=== PATIENT | male | born 1985 | race Caucasian/White ===

== ENCOUNTER 2019-08-15 14:58 | Observation (INO) | payer OTHER, SELFPAY ==
[2019-08-15 15:56] LABS: Bicarbonate (HCO3v) 16.6 mmol/L (22.0-28.0); CO2 Tension (PvCO2) 38.1 mmHg (40.0-50.0); Calcium, Ionized 1.08 mmol/L (See Comments:); Chloride 103 mmol/L (98-107); Hemoglobin - Calc 14.9 g/dL (14.0-18.0); Potassium 4.2 mmol/L (3.5-5.1); Sodium 130 mmol/L (138-145); T. Carbon Dioxide 17.8 mmol/L (22.0-28.0); vO2 Saturation-calc 96.5 % (60.0-85.0)
[2019-08-15 16:01] LABS: Anion Gap 13 mmol/L (10-20); BUN (Urea Nitrogen) 13 mg/dL (8.9-20.6); Calc. Creatinine Clearance 0 mL/min (70-130); Calcium 7.6 mg/dL (7.8-10.44); Carbon Dioxide 17 mmol/L (22-29); Chloride 102 mmol/L (98-107); Estimated GFR-MDRD 68; Glucose 165 mg/dL (70-105); Potassium 4.1 mmol/L (3.5-5.1); Sodium 128 mmol/L (136-145)
[2019-08-15 16:02] LABS: Magnesium 1.6 mg/dL (1.6-2.6)
[2019-08-15 16:12] LABS: Phosphorus 1.3 mg/dL (2.3-4.7)
[2019-08-15] MEDS ORDERED: PHOS-NAK 1 PKT PACK PO SCH (17:00)
[2019-08-15] MEDS ORDERED: Insulin Glargine 15 UNITS in Pre-Filled Syringe 1 EACH SC SCH (17:00)
[2019-08-15] MEDS ORDERED: Bisacodyl 10 MG SUPP PR PRN (19:10)
[2019-08-15] MEDS ORDERED: Senokot S 8.6-50 MG TAB PO PRN (19:10)
[2019-08-15] MEDS ORDERED: Dextrose 5% in Water 1,000 ML IV PRN (19:10)
[2019-08-15] MEDS ORDERED: Calcium Carbonate 500 MG ChewTAB PO PRN (19:10)
[2019-08-15] MEDS ORDERED: Guaifenesin DM 100-10/5 ML UDCUP PO PRN (19:10)
[2019-08-15] MEDS ORDERED: Dextrose 50% Abboject 50 ML SYRINGE SLOW IVP PRN (19:10)
[2019-08-15] MEDS ORDERED: HumaLOG 300 UNITS/3 ML VIAL SC PRN (19:10)
[2019-08-15] MEDS ORDERED: Ondansetron PF 4 MG/2 ML Vial IVP PRN (19:10)
[2019-08-15] MEDS ORDERED: Acetaminophen 325 MG TAB PO PRN (19:10)
[2019-08-15] MEDS: Sodium Chloride 0.9% 1,000 ML IV SCH (20:03)
[2019-08-15 20:15] VITALS: BMI 18.1
[2019-08-15] MEDS: Famotidine 20 MG TAB PO SCH (21:00)
[2019-08-15 21:17] LABS: Acetaminophen Less than 6.0 mcg/mL (10.0-30.0); Alcohol Less than 10 mg/dL (Less than 10); Salicylate Less than 8.0 mg/dL (15.0-30.0)
--- NOTE | 2019-08-15 21:29 | HP ---
REASON FOR ADMISSION: Initial admission was for DKA. HISTORY OF PRESENTING ILLNESS: The patient gives history of having loss of appetite from last 2 to 3 weeks now. He has been having intractable nausea and vomiting and has not been able to eat or drink. The first meal he had was in the ER here. He has had myalgias from last 2 weeks. 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 He does not know if he is exposed to coronavirus. The patient normally takes Lantus 21 units subcu once daily and Humalog for coverage. No abdominal pain, diarrhea, or constipation. No complaints of chest pain, palpitation, PND, or orthopnea. No cough or expectoration as such now. PAST MEDICAL AND SURGICAL HISTORY: Diabetes mellitus, type 1 for last 17 years. He has had surgery for intussusception with bowel obstruction, appendectomy, tonsillectomy. Depression and anxiety. CURRENT MEDICATIONS: 1. Zoloft 50 mg p.o. daily. 2. Humalog coverage. 3. Lantus 21 units subcu q.a.m. ALLERGIES: NO KNOWN DRUG ALLERGIES. PERSONAL HISTORY: Drinks on social occasions. Smokes one pack a day. Does not abuse drugs. FAMILY HISTORY: Mother is healthy. Father has history of diabetes, both are living. CODE STATUS: Full. Power of disability attorney is his mom. REVIEW OF SYSTEMS: CONSTITUTIONAL: Negative for weight loss or gain, ability to conduct usual activities. SKIN: Negative for rash, itching. EYES: Negative for double vision, pain. ENT/MOUTH: Negative for nose bleeding, neck stiffness, pain, tenderness. CARDIOVASCULAR: Negative for palpitations, dyspnea on exertion, orthopnea. RESPIRATORY: Negative for shortness of breath, wheezing, cough, hemoptysis, fever or night sweats. GASTROINTESTINAL: Negative for poor appetite, abdominal pain, heartburn, nausea, vomiting, constipation, or diarrhea. GENITOURINARY: Negative for urgency, frequency, dysuria, nocturia. MUSCULOSKELETAL: Negative for pain, swelling. NEUROLOGIC/PSYCHIATRIC: Negative for anxiety, depression. ALLERGY/IMMUNOLOGIC: Negative for skin rash, bleeding tendency. PHYSICAL EXAMINATION: GENERAL: The patient is a 34-year-old male, who is currently not in any acute distress. VITAL SIGNS: Blood pressure 100/66, pulse 96 per minute, respiratory rate 18 per minute, temperature 98.1 degrees Fahrenheit, and saturating 99% on room air. NECK: Supple. No elevated JVD. HEENT: Eyes; extraocular muscles are intact. Pupils reacting to light. Oral cavity, mucous membranes are dry. No exudates or congestion. CARDIOVASCULAR SYSTEM: S1 and S2 heard. Tachycardic. No murmur. RESPIRATORY SYSTEM: Air entry 1+ bilateral. No rales or rhonchi. ABDOMEN: Soft. Bowel sounds heard. No tenderness, rigidity, or guarding. EXTREMITIES: No peripheral edema or calf tenderness. VASCULAR SYSTEM: Peripheral pulses 1+ bilateral. No ischemic ulcerations or gangrene. CENTRAL NERVOUS SYSTEM: No gross focal motor deficits noted. The patient is alert, awake, and oriented well. PSYCHIATRIC SYSTEM: The patient's mood is euthymic. No hallucinations or delusions. LABORATORY DATA: White count of 14, H and H of 17 and 53, platelet count 438, MCV is 94 with 79% neutrophils, 13% lymphocytes. Venous blood gas done shows a pH of 7.14 at 1130 hours. A repeat blood gas at around 4 p.m. shows a pH of 7.24 with a bicarb of 16. Initial serum bicarb was 17. Sodium 128, BUN 13, creatinine 1.23, serum glucose was 165, phosphorus 1.3, and magnesium 1.6. UA showed no evidence of infection. Prior drug screen in May of 2019 was positive for amphetamine, methamphetamine, and benzodiazepines. Current beta hydroxybutyrate is 3.41. EKG done shows sinus tach at 103 beats per minute. CLINICAL IMPRESSION AND PLAN: The patient will be admitted to the medical floor under observation for diabetic ketoacidosis, which is rapidly resolving. He is severely dehydrated with intractable nausea and vomiting. The patient will be aggressively hydrated with normal saline at 100 mL/hour. He was on insulin 5 mg an hour drip, which has been discontinued and has received a dose of Lantus 15 units subcu in the ER. We will continue him on 15 units subcu Lantus daily and Humalog moderate coverage with nighttime coverage as well. We will obtain a urine drug screen as well. The patient has mild left ventricular hypertrophy signs on the EKG, likely due to his drug abuse. We will continue to closely monitor him on medical floor. In view of patient's symptoms of generalized body aches from last 2 weeks, we will check a COVID-19 test as well. He will have droplet and airborne precautions as well. Job ID: [id number]
[2019-08-16] MEDS: Sodium Chloride 0.9% 1,000 ML IV SCH ×2 (00:51→09:06)
[2019-08-16 01:31] LABS: Amphetamine Not Detected (NotDetected); Barbiturates Screen Not Detected (NotDetected); Benzodiazepine Screen Detected (NotDetected); Cocaine Metabolite Screen Not Detected (NotDetected); Medtox Control Line Valid? VALID (VALID); Medtox Reader # READER 4; Methadone Not Detected (NotDetected); Methamphetamine Not Detected (NotDetected); Opiate Screen Not Detected (NotDetected); Oxycodone Screen Not Detected (NotDetected); Phencyclidine (PCP) Not Detected (NotDetected); THC/Cannabinoid Screen Detected (NotDetected); Tricyclic Screen Not Detected (NotDetected)
[2019-08-16 05:32] LABS: #Basophils 0.1 thou/uL (0.0-0.2); #Eosinphils 0.2 thou/uL (0.0-0.7); #Lymphocytes 1.7 thou/uL (1.20-3.40); #Neutrophils 6.3 thou/uL (1.40-6.50); %Basophils 0.6 % (0.0-1.0); %Lymphocytes 18.1 % (21.0-51.0); %Monocytes 10.9 % (0.0-10.0); %Neutrophils 68.4 % (42.0-75.0); Hemoglobin 13.9 g/dL (14.0-18.0); Mean Corpuscular HGB CONC 33.7 g/dL (32.0-36.0); Mean Corpuscular Hemoglobin 31.1 pg (27.0-31.0); Mean Corpuscular Volume 92.3 fL (78.0-98.0); Mean Platelet Volume 8.8 fL (7.4-10.4); Platelet Count 316 thou/uL (130-400); RBC Distribution Width 12.3 % (11.5-14.5); Red Blood Cell (RBC) Count 4.47 mill/uL (4.70-6.10); White Blood Cell (WBC) Count 9.1 thou/uL (4.8-10.8)
[2019-08-16 05:55] LABS: ALT (SGPT) Less than 7 U/L (8-55); AST (SGOT) 6 U/L (5-34); Albumin 3.2 g/dL (3.5-5.0); Alkaline Phosphatase 62 U/L (40-110); Anion Gap 11 mmol/L (10-20); BUN (Urea Nitrogen) 9 mg/dL (8.9-20.6); Bilirubin, Total 0.2 mg/dL (0.2-1.2); Calc. Creatinine Clearance 91 mL/min (70-130); Calcium 7.8 mg/dL (7.8-10.44); Carbon Dioxide 22 mmol/L (22-29); Chloride 105 mmol/L (98-107); Estimated GFR-MDRD 87; Globulin 2.6 g/dL (2.4-3.5); Glucose 246 mg/dL (70-105); Protein, Total 5.8 g/dL (6.0-8.3); Sodium 134 mmol/L (136-145)
[2019-08-16] MEDS: HumaLOG 300 UNITS/3 ML VIAL SC PRN ×2 (06:03→17:23)
[2019-08-16] MEDS ORDERED: Enoxaparin Sodium 40 MG/0.4 ML SYRINGE SC SCH (09:00)
[2019-08-16] MEDS ORDERED: Insulin Glargine 15 UNITS in Pre-Filled Syringe 1 EACH SC SCH (09:00)
[2019-08-16] MEDS: Famotidine 20 MG TAB PO SCH (09:05)
[2019-08-16] MEDS ORDERED: Nicotine 21 MG PATCH TD SCH (11:55)
[2019-08-16 18:46] VITALS: BP 127/70; TEMP 98
[2019-08-17 12:15] LABS: SARS-CoV-2 MS2 Positive; SARS-CoV-2 N Gene Negative; SARS-CoV-2 S Gene Negative; SARS-CoV-2 orf1ab Negative
--- NOTE | 2019-08-17 13:01 | DIS ---
DATE OF ADMISSION: 08/15/2019 DATE OF DISCHARGE: 08/16/2019 DISCHARGE DISPOSITION: To home. PRIMARY DISCHARGE DIAGNOSES: Diabetic ketoacidosis, resolved; severe dehydration, resolved; intractable nausea and vomiting. He is tolerating oral diet at the time of discharge. PROCEDURES DONE DURING HOSPITALIZATION: H and H 13 and 41; platelet count 316. Initial white count is 14. Discharge white count of 9. Serum bicarb on the day of discharge is 22, BUN 9, creatinine 1.0, albumin 3.2. Urine tox screen was positive for benzodiazepines and cannabinoids. COVID-19 PCR was not detected. Venous blood gas done on the day of admission showed a pH of 7.14, pCO2 of 32, pO2 of 46, and bicarb was 11 on the blood gas. DISCHARGE MEDICATIONS: 1. Sertraline 50 mg p.o. daily. 2. Lantus 5 units subcu twice daily. 3. Humalog coverage as before. DISCHARGE PLAN: The patient to follow up with Dr. Raquel Trotter, his primary care physician in 1 week. The patient has been advised to check fingerstick glucose twice daily and record to follow up with primary care physician. BRIEF COURSE DURING HOSPITALIZATION: The patient initially was transferred from [facility] for DKA. By the time he arrived here, the patient's metabolic acidosis gap was closing up. His insulin drip was discontinued, and the patient was placed on Lantus long-acting insulin. He was also aggressively hydrated. The patient has been initiated on oral solid diet, which he is tolerating. In view of the patient's intractable nausea, vomiting, myalgias from last 2 weeks, COVID-19 PCR was obtained. This has come back negative. Prior to discharge, he is ambulating and eating well. He was counseled with regard to medication and dietary compliance. Please note I have seen and examined the patient on the day of discharge. Job ID: [id number]
--- NOTE | 2019-08-23 11:01 | EKG ---
Test Reason : Blood Pressure : / mmHG Vent. Rate : 099 BPM Atrial Rate : 099 BPM P-R Int : 142 ms QRS Dur : 082 ms QT Int : 346 ms P-R-T Axes : 063 079 056 degrees QTc Int : 444 ms Normal sinus rhythm Nonspecific ST and T wave abnormality Abnormal ECG Confirmed by BRITTNI ALFONSO DO ([id number]), mapping editor JOHNNY ALDRIDGE ([id number] on 08/23/2019 11:01:00 AM Referred By: Confirmed By:BRITTNI ALFONSO DO
== END 2019-08-16 15:25 | disposition home or self-care (01) ==
LOC: ERS 14:58 → 2SW 16:42
PROVIDERS: ADMIT Internal Medicine; ATTEND Internal Medicine
DX: E10.10 Type 1 diabetes mellitus with ketoacidosis without coma (principal); E86.0 Dehydration; F32.9 Major depressive disorder, single episode, unspecified; F41.9 Anxiety disorder, unspecified; F17.210 Nicotine dependence, cigarettes, uncomplicated; R11.2 Nausea with vomiting, unspecified; M79.10 Myalgia, unspecified site; Z20.828 Contact with and (suspected) exposure to other viral communicable diseases; Z79.899 Other long term (current) drug therapy
CPT/HCPCS: 36415; 36416; 80053; 80306; 80307; 82010; 82330; 82803; 83735; 84100; 85025; 87040; 87635; 93005; 96360; 96361; 96372; G0378; J1650; J1815; U0003